=== PATIENT | female | born 1990 | race Caucasian/White ===

== ENCOUNTER 2019-02-23 14:28 | Emergency (ER) | payer OTHER ==
[~2019-02-23] VITALS: Ht 154.9 cm; Wt 49.9 kg
[2019-02-23 14:30] VITALS: BP 126/80
--- NOTE | 2019-02-23 14:39 | NUR ---
PT AMBULATED TO BED 12
--- NOTE | 2019-02-23 14:46 | NUR ---
C/O LACERATION TO L HAND 3RD DIGIT TODAY WHILE CUTTING TOMATOES. BLEEDING IS CONTROLLED. PT REPORTS BEING APPROX. 6 WEEKS . LAST DATE OF TETANUS UNKNOWN.
[2019-02-23] MEDS ORDERED: LIDOCAINE MPF 1% 5mL VIAL INJ ONE (14:50)
[2019-02-23] MEDS ORDERED: BACITRACIN OINT 500 UNITS/GM PKT TP ONE (15:25)
--- NOTE | 2019-02-23 15:40 | NUR ---
EMT APPLIED SPINT TO PT FINGER, +CMS.
[2019-02-23 15:42] VITALS: BP 116/69
--- NOTE | 2019-02-23 15:42 | NUR ---
bacitracin was placed on pts left middle finger then coverred with a non-adherent gauze and wrapped with gauze wrap. frog splint was placed on pts finger to imobilize.
== END 2019-02-23 15:44 | disposition home or self-care (01) ==
LOC: MED 14:28
DX: S61.213A Laceration without foreign body of left middle finger without damage to nail, initial encounter (principal); Z23 Encounter for immunization; W26.0XXA Contact with knife, initial encounter; Y93.89 Activity, other specified; Y92.000 Kitchen of unspecified non-institutional (private) residence as the place of occurrence of the external cause; Y99.8 Other external cause status
CPT/HCPCS: 12001; 90471; 90715; 99283

== ENCOUNTER 2019-02-26 20:05 | Emergency (ER) | payer OTHER ==
[~2019-02-26] VITALS: Ht 156.2 cm; Wt 49.9 kg
[2019-02-26 20:08] VITALS: BP 127/71
--- NOTE | 2019-02-26 20:08 | NUR ---
PT TAKEN TO BED 2
--- NOTE | 2019-02-26 20:20 | NUR ---
28 YO F BIB SELF FOR A WOUND REASSESSMENT. PT WAS SEEN AT [facility] ON SUNDAY FOR A LACERATION TO HER LEFT THIRD DIGIT AND RECEIVED 6 SUTURES. WOUND APPEARS CLOSED AND CLEANED WITH IODINE. PT DENIES ANY PAIN, SWELLING, OR TENDERNESS. NO ODOR OR DRAINAGE NOTED AT THIS TIME. PT DENIES FEVER. NO S/SX INFECTION REPORTED OR NOTED.
[2019-02-26] MEDS ORDERED: BACITRACIN OINT 500 UNITS/GM PKT TP ONE (20:30)
--- NOTE | 2019-02-26 20:44 | NUR ---
Patient discharged with v/s stable. Written and verbal after care instructions given and explained. Patient verbalized understanding. Ambulatory with steady gait. All questions addressed prior to discharge. Advised to follow up with PMD.
[2019-02-26 20:45] VITALS: BP 132/82
== END 2019-02-26 20:44 | disposition home or self-care (01) ==
LOC: MED 20:05
DX: S61.213D Laceration without foreign body of left middle finger without damage to nail, subsequent encounter (principal); W45.8XXD Other foreign body or object entering through skin, subsequent encounter
CPT/HCPCS: 99283

== ENCOUNTER 2019-03-02 15:25 | Emergency (ER) | payer OTHER ==
[~2019-03-02] VITALS: Ht 154.9 cm; Wt 52.2 kg
[2019-03-02 15:35] VITALS: BP 111/59
--- NOTE | 2019-03-02 16:33 | NUR ---
PT TAKEN TO BED 2.
--- NOTE | 2019-03-02 16:34 | NUR ---
PT HAD SUTURES PLACED IN 3RD DIGIT ON L HAND AT [facility] 02/23/19. COMING IN TODAY TO HAVE THEM REMOVED. SUTURES ARE C/D/I, NO REDNESS OR SWELLING NOTED, PT DENIES PAIN. PT REQUESTED TEST TO CONFIRM (+) HOME TEST.
[2019-03-02] MEDS ORDERED: BACITRACIN OINT 500 UNITS/GM PKT TP ONE (17:49)
[2019-03-02 18:02] VITALS: BP 114/63
--- NOTE | 2019-03-02 18:02 | NUR ---
Patient discharged with v/s stable. Written and verbal after care instructions given and explained. Patient alert, oriented and verbalized understanding of instructions. Ambulatory with steady gait. All questions addressed prior to discharge. ID band removed. Patient advised to follow up with PMD. Rx of Foltabs Plus DHA given. Patient educated on indication of medication including possible reaction and side effects. Opportunity to ask questions provided and answered.
== END 2019-03-02 18:02 | disposition home or self-care (01) ==
LOC: MED 15:25
DX: S61.213D Laceration without foreign body of left middle finger without damage to nail, subsequent encounter (principal); Z32.01 Encounter for pregnancy test, result positive; X58.XXXD Exposure to other specified factors, subsequent encounter
CPT/HCPCS: 81025; 99282